=== PATIENT | male | born 1930 | race Caucasian/White ===

== ENCOUNTER 2016-07-24 05:00 | Inpatient (IN) | payer MEDICARE, OTHER ==
[~2016-07-24] VITALS: Ht 177.8 cm; Wt 147.2 kg
[2016-07-24] VITALS (7 sets, daily range): BP systolic 130–198; BP diastolic 85–110
--- NOTE | ~2016-07-24 | PR ---
[place], [place] PROGRESS NOTE NAME: TYSHAWN JOSHI [facility] #: [id number] UNIT #: [id number] ROOM: 511 DOCTOR: MAX STALLINGS MD BIRTHDATE: [birth year] DOS: 07/25/2016 SUBJECTIVE: The patient was seen at his bedside today, 07/25/2016, for followup of his atrial fibrillation and heart failure with preserved ejection fraction. He presented yesterday with marked fluid overload and hypoxemia. He was found to be in atrial fibrillation, which probably is in the setting of a conduction system disorder since his heart rate was not fast in atrial fibrillation. He was diuresed, and he states that he is breathing better today. His echocardiogram was a very technically challenging study, but showed normal overall left ventricular systolic function. PHYSICAL EXAMINATION: VITAL SIGNS: Today, his pulse is 68 and irregularly irregular, blood pressure 122/68. He is afebrile. NECK: Supple. He has no jugular distention or obvious hepatojugular reflux. Carotids are full. LUNGS: Respirations are unlabored. He has decreased breath sounds at the bases. HEART: An irregularly irregular rhythm and apical pulse is about 90. He has no murmurs or gallops. ABDOMEN: Obese, but otherwise benign. EXTREMITIES: Show 3+ edema bilaterally. LABORATORY DATA: Hemoglobin is 14.2, white count 9600, platelet count 206,000. Sodium 133, potassium 4.3, BUN 9, creatinine 0.66. Troponin levels were normal. Total cholesterol 147 with LDL 75 and HDL 60. TSH is normal at 2.28. IMPRESSION: 1. Massive fluid overload due to heart failure with preserved ejection fraction and exacerbated by atrial fibrillation. 2. Newly documented atrial fibrillation. The patient most likely does have a conduction system disorder since his heart rate is controlled despite the fact that he is not on a very high dose of heart rate slowing medication. 3. Chronic obstructive pulmonary disease. PLAN: We will switch him from IV to p.o. loop diuretics and continue to monitor his rate. I will increase the dose of his carvedilol. Unfortunately, we cannot monitor his I's and O's because of incontinence, but clinically he is doing better. We will continue to remain conservative and his management with our goal being to improve his breathing and fluid status only, especially since he does have a DNR-CC code status. We thank the hospitalist group for asking our advice regarding his care. [place], [place] PROGRESS NOTE NAME: TYSHAWN JOSHI UNIT #: [id number] ROOM: 511 DOCTOR: MAX STALLINGS MD BIRTHDATE: [birth year] MAX STALLINGS MD CM:PNTRANS [id number] MAX STALLINGS MD 07/26/16 0601 interface
--- NOTE | ~2016-07-24 | CON ---
[place], [place] REPORT OF CONSULTATION NAME: [id number] UN[facility] #: [id number] ROOM: 511 DOCTOR: MAX STALLINGS MD BIRTHDATE: [birth year] DOS: 07/24/2016 CARDIOLOGY CONSULTATION CHIEF COMPLAINT: Dyspnea and swelling. HISTORY OF PRESENT ILLNESS: The patient is an 86-year-old man, who was previously unknown to [facility]. He states he has never had a heart problem before. He is a permanent resident of [facility] where he has been living for the last 4 or 5 years. He tells me he has been unable to walk in all of that time because of arthritic problems with his right knee. The patient is a poor historian, but states that in the last several weeks, he has become more and more swollen in his legs and more dyspneic. Early this morning, his pulse oximetry measured at 80%, and therefore, Emergency Medical Services were called. He was placed on oxygen and brought to the Emergency Room. Chest x-ray showed cardiomegaly and vascular congestion, and an electrocardiogram showed atrial fibrillation with a controlled rate. As best he knows, he has never had a diagnosis of atrial fibrillation or any heart problems in the past. He was admitted to the hospital for management of atrial fibrillation and heart failure. The patient denies any chest pain or palpitations. He denies lightheadedness or syncope. He does note increased peripheral edema. He states that he has been bedridden for at least 4 or 5 years. PAST MEDICAL HISTORY: Includes: 1. Chronic obstructive pulmonary disease. 2. Degenerative joint disease, especially involving his right knee. 3. Inability to ambulate. PAST SURGICAL HISTORY: The patient has no previous surgical history. MEDICATIONS: Prior to admission, [place] saline nasal spray q.3 hours p.r.n., Debrox to the ears b.i.d. as needed, acetaminophen p.r.n., ascorbic acid 500 mg daily, aspirin 81 mg daily, Celebrex 200 mg daily, loratadine 10 mg daily, Singulair 10 mg daily, multivitamin daily, and Calmoseptine ointment q.12 hours as needed. ALLERGIES: The patient lists no known drug allergies. FAMILY HISTORY: The patient's father at age 77 from a stroke. The patient's mother at age 77 from breast cancer. REVIEW OF SYSTEMS: The patient denies diplopia or loss of vision. He does have poor hearing. He denies focal weakness. He denies lightheadedness or syncope. He denies chest pain or palpitations. He has noted increased dyspnea. He denies nausea or vomiting. He denies hemoptysis or hematemesis. He has noticed [place], [place] REPORT OF CONSULTATION NAME: TYSHAWN JOSHI UNIT #: [id number] ROOM: 511 DOCTOR: MAX STALLINGS MD BIRTHDATE: [birth year] a marked swelling of his abdomen, which has been progressive over the last 4 or 5 years. He denies change in bowel or bladder habits. He denies bleeding from his urine or stools. He has noticed swelling in his legs. He denies heat or cold intolerance, and denies polyuria or polydipsia. The remainder of the review of systems is negative except as noted above. SOCIAL HISTORY: The patient is a former smoker, smoking 2 packs a day for 60 years. He quit around 2012. He does not consume alcohol. PHYSICAL EXAMINATION: GENERAL: Reveals a massively overweight white male, who is awake, alert, and oriented. He is obviously hard of hearing. VITAL SIGNS: Pulse is 70 and irregularly irregular. Blood pressure is 156/94. He is afebrile. He weighs 149.5 kg and has a body mass index of 47.3. HEENT: Normocephalic, atraumatic. Extraocular muscles are intact. Sclerae are clear. Pupils are equal, round, and reactive to light. The oral mucosa is moist. Tongue is midline. NECK: Supple. I could not tell if he had jugular distention because of the girth of his neck. Carotids were full. I heard no bruits. He had no neck or supraclavicular masses. I could not feel his thyroid. LUNGS: His respirations were unlabored at rest, but did become short with minimal exertion. He has decreased breath sounds at the bases with a few rales at the bases. He does have expiratory prolongation over most of his lungs. I heard no wheezes. He had no presacral edema or chest wall tenderness. CARDIOVASCULAR: His heart had an irregularly irregular rhythm without murmurs or gallops. The PMI could not be felt. There was no precordial heave, lift, or thrill. ABDOMEN: Markedly distended. There was a slight fluid wave. There were no masses or organomegaly palpable. Bowel sounds were normal. There was no tenderness. EXTREMITIES: Showed 3+ edema to the knees. Pedal pulses could not be felt. He had no obvious skin rashes. LABORATORY DATA: I reviewed his electrocardiogram. It showed atrial fibrillation with a controlled ventricular response. There is poor precordial R-wave progression, but no acute ST or T-wave change. Chest x-ray does show cardiomegaly and pulmonary vascular congestion, but it is a poor inspiration. INR is 1.1. Hemoglobin 14.2 with hematocrit of 43.4. There are 8300 white cells and 225,000 platelets present. Sodium is 133, potassium 3.7, BUN 6, creatinine 0.47. Troponins have been negative x 2. TSH is slightly elevated at 6.14. ProBNP is elevated at 1232. IMPRESSION: 1. Massive fluid overload, probably due to diastolic dysfunction, exacerbated by atrial fibrillation. 2. Atrial fibrillation, newly documented. The patient probably does have a conduction system disorder since his heart rate is controlled despite the fact [place], [place] REPORT OF CONSULTATION NAME: TYSHAWN JOSHI UNIT #: [id number] ROOM: 511 DOCTOR: MAX STALLINGS MD BIRTHDATE: [birth year] that he is not on any significant dose of a heart rate slowing medication. 3. Chronic obstructive pulmonary disease. PLAN: The patient has been placed on loop diuretics. We will monitor his fluid output and weight along with his renal functions. I will increase his beta charu to better control his heart rate even though it is not particularly fast at this time. I did discuss with the patient the fact that he has a high risk of stroke. Part of this is because of his atrial fibrillation and part is because of his very sedentary lifestyle. He understands this and agrees to begin taking a direct oral anticoagulant. We will obtain an echocardiogram to quantify his left ventricular systolic function. I do note that his code status is comfort care. Because of this, we will remain very conservative in his management with our goal to be improve his breathing and fluid status only. We thank the hospitalist group for asking our advice regarding his care. MAX STALLINGS MD CM:CONSTR:REPORT OF CONSULTATION 1632 07/25/16 0236 interface
--- NOTE | ~2016-07-24 | EKG ---
[place], [place] ELECTROCARDIOGRAM REPORT NAME: TYSHAWN JOSHI UNIT #: [id number] ROOM: 511 DOCTOR: MAX STALLINGS MD BIRTHDATE: [birth year] DOS: 07/24/2016 TIME: 0520 hours. FINDINGS: 1. Atrial fibrillation with controlled ventricular response, rate 83. 2. Nonspecific T-wave abnormalities. 3. Abnormal electrocardiogram. MAX STALILNGS MD CM:EKGRPT:ELECTROCARDIOGRAM REPORT [id number] MAX STALLINGS MD
[~2016-07-24 05:00] MED LIST: DULCOLAX5 MG PO; DUONEB 3 MG/3 ML3 M1 NEB; MOM30 M1 PO; NICODERM14 MG/24 H T; NYSTATIN CREAM15 GM T; TYLENOL325 M1 PO
[2016-07-24] MEDS ORDERED: ASPIRIN81 M1 PO (05:08)
[2016-07-24] MEDS ORDERED: MULTI VITAMINS1 TAB PO (05:09)
[2016-07-24] MEDS ORDERED: CELECOXIB200 M1 PO (05:09)
[2016-07-24] MEDS ORDERED: CLARITIN10 MG PO (05:09)
[2016-07-24] MEDS ORDERED: SINGULAIR10 M1 PO (05:10)
[2016-07-24] MEDS ORDERED: OCEAN104 ML NAS (05:10)
[2016-07-24] MEDS ORDERED: DEBROX15 ML OT (05:11)
[2016-07-24] MEDS ORDERED: VITAMIN C500 M4 PO (05:11)
[2016-07-24 05:23] LABS: BASO # 0.1 10*3/uL (0.0-0.1); BASO % 0.7 % (0.0-1.0); EOS # 0.1 10*3/uL (0.0-0.4); HEMATOCRIT 43.4 % (42.0-52.0); HEMOGLOBIN 14.2 g/dl (14.0-18.0); LYMPH # 1.1 10*3/uL (1.3-4.4); LYMPH % 12.9 % (27.0-41.0); MEAN CELL VOLUME 98.6 fl (80.0-94.0); MEAN CORPUSCULAR HGB 32.3 pg (27.0-31.0); MEAN CORPUSCULAR HGB CONC 32.7 g/dl (33.0-37.0); MEAN PLATELET VOLUME 10.3 fl (9.6-12.3); MONO # 0.7 10*3/uL (0.1-1.0); MONO % 8.7 % (3.0-9.0); NEUT # 6.3 10*3/uL (2.3-7.9); NEUT % 76.3 % (47.0-73.0); PLATELET COUNT AUTOMATED 225 10*3/uL (130-400); WHITE BLOOD COUNT 8.3 10*3/uL (4.8-10.8)
[2016-07-24 05:35] LABS: INTERNATIONAL NORM RATIO 1.1 (2.0-3.5); PROTHROMBIN TIME 11.7 SECONDS (9.0-12.4)
[2016-07-24 05:41] LABS: ALBUMIN 3.4 gm/dl (3.1-4.5); ALKALINE PHOSPHATASE 91 U/L (45-117); BILIRUBIN, TOTAL 0.7 mg/dl (0.2-1.0); BUN 6 mg/dl (7-24); CARBON DIOXIDE 34 mmol/L (21-32); CHLORIDE 91 mmol/L (98-107); EST GLOM FILT AFRICAN AMERICAN > 60 ml/min; GLUCOSE 140 mg/dL (65-99); MAGNESIUM 2.2 mg/dL (1.5-2.1); POTASSIUM 3.7 mmol/L (3.5-5.1); SGOT/AST 14 IU/L (3-35); SGPT/ALT 27 U/L (12-78); SODIUM 133 mmol/L (136-145); TOTAL PROTEIN 7.4 gm/dL (6.4-8.2)
[2016-07-24 05:43] LABS: TROPONIN I < 0.015 ng/ml (<0.045)
[2016-07-24] MEDS ORDERED: CALMOSEPTINE1 OIN TP (08:02)
[2016-07-24 08:50] LABS: BILIRUBIN NEGATIVE (NEGATIVE); BLOOD NEGATIVE (NEGATIVE); CLARITY SL CLOUDY (CLEAR); COLOR YELLOW (YELLOW); GLUCOSE NEGATIVE (NEGATIVE); KETONE TRACE (NEGATIVE); LEUKO ESTERASE NEGATIVE (NEGATIVE); NITRITE NEGATIVE (NEGATIVE); PROTEIN 1+ (NEGATIVE)
[2016-07-24 09:00] LABS: BACTERIA TRACE; EPITHELIAL CELLS 0-2; RBC 0-2 rbc/hpf (0-2); URINE REFLEX COMMENT NO (NO)
[2016-07-24 12:19] LABS: CKMB 2.6 ng/ml (0.5-3.6); CPK 54 U/L (39-308)
[2016-07-24 12:26] LABS: TROPONIN I < 0.015 ng/ml (<0.045)
[2016-07-24 18:40] LABS: CKMB 2.3 ng/ml (0.5-3.6); CPK 54 U/L (39-308)
[2016-07-24 18:42] LABS: TROPONIN I < 0.015 ng/ml (<0.045)
[2016-07-25] VITALS (8 sets, daily range): BP systolic 100–150; BP diastolic 54–80
[2016-07-25 00:39] LABS: CKMB 1.6 ng/ml (0.5-3.6); CPK 42 U/L (39-308)
[2016-07-25 00:40] LABS: TROPONIN I < 0.015 ng/ml (<0.045)
[2016-07-25 06:16] LABS: HEMATOCRIT 44.4 % (42.0-52.0); HEMOGLOBIN 14.2 g/dl (14.0-18.0); MEAN CELL VOLUME 100.9 fl (80.0-94.0); MEAN CORPUSCULAR HGB 32.3 pg (27.0-31.0); MEAN PLATELET VOLUME 10.4 fl (9.6-12.3); PLATELET COUNT AUTOMATED 206 10*3/uL (130-400); RED CELL DISTRI WIDTH 13.9 % (0-14.5); WHITE BLOOD COUNT 9.6 10*3/uL (4.8-10.8)
[2016-07-25 06:46] LABS: BUN 9 mg/dl (7-24); CARBON DIOXIDE 39 mmol/L (21-32); CHLORIDE 88 mmol/L (98-107); CHOLESTEROL 147 mg/dL (<200); EST GLOM FILT AFRICAN AMERICAN > 60 ml/min; GLUCOSE 143 mg/dL (65-99); MAGNESIUM 2.3 mg/dL (1.5-2.1); PHOSPHOROUS 3.9 mg/dL (2.5-4.9); POTASSIUM 4.3 mmol/L (3.5-5.1); SODIUM 133 mmol/L (136-145); TRIGLYCERIDES 58 mg/dl (<150); VLDL CHOLESTEROL 12 mg/dL (6-40)
[2016-07-25 06:55] LABS: HDL CHOLESTEROL 60 mg/dl (40-60); LDL CHOLESTEROL 75 mg/dL (9-159)
[2016-07-25 07:12] LABS: ATYPICAL LYMPHS 1 % (0-0); LYMPHOCYTE # 0.6 10*3/uL (1.3-4.4); MONOCYTE # 0.2 10*3/uL (0.1-1.0); NEUTROPHIL # 8.8 10*3/uL (2.3-7.9); NEUTROPHILS 92 % (47-73); PLATELET SUFFICIENCY NORMAL (NORMAL); TOTAL CELLS COUNTED 100 #CELLS
[2016-07-25 07:35] LABS: HEMOGLOBIN A1c 6.2 % (4.8-5.6)
[2016-07-26] VITALS: BP 122/65
[2016-07-26 08:00] VITALS: BP 120/68
[2016-07-26 12:00] VITALS: BP 103/64
[2016-07-26 16:00] VITALS: BP 118/52
[2016-07-26 20:00] VITALS: BP 117/82
[2016-07-27] VITALS: BP 108/72
[2016-07-27 08:00] VITALS: BP 103/65
[2016-07-27] MEDS ORDERED: FUROSEMIDE40 MG PO (10:58)
[2016-07-27] MEDS ORDERED: PREDNISONE10 MG PO (10:58)
[2016-07-27] MEDS ORDERED: XARE20MG PO (10:58)
[2016-07-27] MEDS ORDERED: MUCINEX ER600 MG PO (10:58)
[2016-07-27] MEDS ORDERED: CARVEDILOL25 MG PO (10:58)
[2016-07-27] MEDS ORDERED: DOXYCYCLINE HY100 M3 PO (10:58)
[2016-07-27 12:00] VITALS: BP 100/61
[2016-07-27] MEDS ORDERED: OXYGEN NAS (13:13)
== END 2016-07-27 15:51 | disposition other institution (70) | DRG 871 ==
LOC: ED 05:00 → 5E 05:59 → EDHOLD 05:59 → 5E 06:05
PROVIDERS: Emergency Medicine Emergency Medical Services; Student in an Organized Health Care Education/Training Program
DX: A41.9 Sepsis, unspecified organism (principal); J18.9 Pneumonia, unspecified organism; J96.01 Acute respiratory failure with hypoxia; I50.30 Unspecified diastolic (congestive) heart failure; I48.91 Unspecified atrial fibrillation; J44.0 Chronic obstructive pulmonary disease with (acute) lower respiratory infection; E87.1 Hypo-osmolality and hyponatremia; E44.1 Mild protein-calorie malnutrition; J44.1 Chronic obstructive pulmonary disease with (acute) exacerbation; Z68.42 Body mass index [BMI] 45.0-49.9, adult; Z66 Do not resuscitate; M17.11 Unilateral primary osteoarthritis, right knee; E83.41 Hypermagnesemia; E83.51 Hypocalcemia; Z79.01 Long term (current) use of anticoagulants; Z79.899 Other long term (current) drug therapy; Z79.82 Long term (current) use of aspirin; Z82.49 Family history of ischemic heart disease and other diseases of the circulatory system; Z82.3 Family history of stroke; Z80.3 Family history of malignant neoplasm of breast

== ENCOUNTER 2017-01-10 06:02 | Inpatient (IN) | payer MEDICARE, OTHER ==
[~2017-01-10] VITALS: Ht 179 cm; Wt 125.2 kg
[~2017-01-10 06:02] MED LIST changes: +ASPIRIN81 M1 PO; +CALMOSEPTINE1 OIN TP; +CARVEDILOL25 MG PO; +CELECOXIB200 M1 PO; +CLARITIN10 MG PO; +DEBROX15 ML OT; +DOXYCYCLINE HY100 M3 PO; +FUROSEMIDE40 MG PO; +MUCINEX ER600 MG PO; +MULTI VITAMINS1 TAB PO; +OCEAN104 ML NAS; +OXYGEN NAS; +PREDNISONE10 MG PO; +SINGULAIR10 M1 PO; +VITAMIN C500 M4 PO; +XARE20MG PO
[2017-01-10 06:04] VITALS: BP 112/65
[2017-01-10 06:26] LABS: BASO % 0.2 % (0.0-1.0); EOS % 0.1 % (1.0-4.0); HEMATOCRIT 38.6 % (42.0-52.0); LYMPH # 1.1 10*3/uL (1.3-4.4); LYMPH % 5.7 % (27.0-41.0); MEAN CORPUSCULAR HGB CONC 33.7 g/dl (33.0-37.0); MEAN PLATELET VOLUME 10.6 fl (9.6-12.3); MONO # 1.1 10*3/uL (0.1-1.0); MONO % 5.6 % (3.0-9.0); NEUT # 16.5 10*3/uL (2.3-7.9); NEUT % 87.3 % (47.0-73.0); PLATELET COUNT AUTOMATED 187 10*3/uL (130-400); RED BLOOD COUNT 3.94 10*6/uL (4.50-5.90); RED CELL DISTRI WIDTH 13.5 % (0-14.5); WHITE BLOOD COUNT 18.9 10*3/uL (4.8-10.8)
[2017-01-10 06:43] LABS: ALBUMIN 2.7 gm/dl (3.1-4.5); ALKALINE PHOSPHATASE 72 U/L (45-117); BUN 14 mg/dl (7-24); CHLORIDE 98 mmol/L (98-107); POTASSIUM 3.5 mmol/L (3.5-5.1); SGOT/AST 10 IU/L (3-35); SGPT/ALT 12 U/L (12-78); SODIUM 139 mmol/L (136-145); TOTAL PROTEIN 6.7 gm/dL (6.4-8.2)
[2017-01-10 06:50] LABS: TROPONIN I < 0.015 ng/ml (<0.045)
[2017-01-10 07:00] VITALS: BP 132/76
--- NOTE | 2017-01-10 07:00 | NUR ---
PT CURRENTLY STATED HE DOES NOT WANT PICTURES TAKEN OF WOUNDS.
[2017-01-10 08:00] VITALS: BP 142/73
--- NOTE | 2017-01-10 08:15 | NUR ---
BOTH BAGS OF VANCOMYCIN WAS TAKEN TO 5E AND GIVEN TO KRYSTAL GARIBAY.
[2017-01-10 08:42] VITALS: BP 132/76
[2017-01-10] MEDS ORDERED: CLARITIN10 MG PO (10:24)
[2017-01-10] MEDS ORDERED: MEDROL4 M1 PO (10:25)
[2017-01-10] MEDS ORDERED: TRAMADOL HCL50 MG PO (10:28)
[2017-01-10] MEDS ORDERED: TYLENOL325 M2 PO (10:29)
[2017-01-10] MEDS ORDERED: KLOR-CON M2020 ME1 PO (10:31)
--- NOTE | 2017-01-10 10:31 | NUR ---
Time: 841 A 86 year old MALE admitted to 5E under services of DANNY RUSSELL DO. Pt. arrived via stretcher from ER. Chief complaint: CELLULITIS. NIDA GUERRA
--- NOTE | 2017-01-10 10:34 | NUR ---
MEDICATION RECONCILIATION CONDUCTED USING LIST RECIEVED FROM [facility]E [facility]
--- NOTE | 2017-01-10 11:43 | NUR ---
This nurse was asked to evaluate patient's buttocks and jena area. Foul smelling red rash noted to periarea and buttocks. No drainage at this time. Bilateral heels are red and blanchable. Wound recommend nystatin cream to periarea and buttocks area. Wheelchair cushion when OOB. Heel raiser pro boots while in bed. This nurse notified Dr. Marlow of wound care recommendations.
[2017-01-10 13:56] LABS: BILIRUBIN NEGATIVE (NEGATIVE); BLOOD TRACE-INTACT (NEGATIVE); CLARITY SL CLOUDY (CLEAR); COLOR YELLOW (YELLOW); GLUCOSE NEGATIVE (NEGATIVE); KETONE NEGATIVE (NEGATIVE); LEUKO ESTERASE 1+ (NEGATIVE); NITRITE POSITIVE (NEGATIVE); SPECIFIC GRAVITY 1.015 (1.005-1.030)
[2017-01-10 14:26] LABS: BACTERIA 1+; WBC 21-30 wbc/hpf (0-5)
[2017-01-10 16:00] VITALS: BP 122/75
[2017-01-10 20:00] VITALS: BP 120/61
[2017-01-11] VITALS: BP 113/71
[2017-01-11 07:35] LABS: BASO % 0.4 % (0.0-1.0); EOS # 0.2 10*3/uL (0.0-0.4); EOS % 1.5 % (1.0-4.0); HEMATOCRIT 38.8 % (42.0-52.0); HEMOGLOBIN 12.7 g/dl (14.0-18.0); LYMPH # 1.4 10*3/uL (1.3-4.4); LYMPH % 13.1 % (27.0-41.0); MEAN CELL VOLUME 99.2 fl (80.0-94.0); MEAN CORPUSCULAR HGB 32.5 pg (27.0-31.0); MEAN CORPUSCULAR HGB CONC 32.7 g/dl (33.0-37.0); MEAN PLATELET VOLUME 10.4 fl (9.6-12.3); MONO # 0.9 10*3/uL (0.1-1.0); MONO % 8.3 % (3.0-9.0); NEUT # 7.9 10*3/uL (2.3-7.9); NEUT % 76.1 % (47.0-73.0); PLATELET COUNT AUTOMATED 186 10*3/uL (130-400); RED BLOOD COUNT 3.91 10*6/uL (4.50-5.90); RED CELL DISTRI WIDTH 13.7 % (0-14.5); WHITE BLOOD COUNT 10.3 10*3/uL (4.8-10.8)
[2017-01-11 08:00] VITALS: BP 120/65
[2017-01-11 08:03] LABS: ACT PARTIAL THROMBO TIME 36.6 SECONDS (20.8-31.5); INTERNATIONAL NORM RATIO 1.4 (2.0-3.5)
[2017-01-11 08:04] LABS: BUN 11 mg/dl (7-24); CHLORIDE 99 mmol/L (98-107); CHOLESTEROL 109 mg/dL (<200); CREATININE 0.52 mg/dL (0.70-1.30); HDL CHOLESTEROL 43 mg/dl (40-60); LDL CHOLESTEROL 55 mg/dL (9-159); MAGNESIUM 2.2 mg/dL (1.5-2.1); PHOSPHOROUS 3.1 mg/dL (2.5-4.9); POTASSIUM 2.8 mmol/L (3.5-5.1); SODIUM 140 mmol/L (136-145); TRIGLYCERIDES 55 mg/dl (<150); VLDL CHOLESTEROL 11 mg/dL (6-40)
--- NOTE | 2017-01-11 08:08 | NUR ---
Patient is LTC resident of [facility] [place], can return with updates when stable for discharge.
--- NOTE | 2017-01-11 08:49 | NUR ---
SPEECH PATHOLOGY Screening completed. Patient admitted with cellulitis. There are no reports of acute receptive/expressive difficulty or dysphagia. Speech pathology services are not warranted at this time however this dept. will remain available should future needs arise. MARCO ANTONIO LOPES MSCCC-VICE PRESIDENT PAYER
[2017-01-11 12:00] VITALS: BP 111/66
--- NOTE | 2017-01-11 14:45 | NUR ---
DAPHNE HANEY CALLED TO NOTIFY OF PATIENT NEW COMPLAINTS OF SOB, IRREGULAR HEAR RATE AND ANXIOUSNESS. PT DENIES CHEST PAIN, VITALS ARE WNL.
[2017-01-11 16:00] VITALS: BP 129/79
[2017-01-11 20:00] VITALS: BP 125/73
[2017-01-12] VITALS: BP 127/75
--- NOTE | 2017-01-12 06:53 | NUR ---
PATIENT MEDICATED WITH TYLENOL PER PRN ORDER FOR C/O LEG PAIN. RATED PAIN A 4/10 WITH 10 BEING THE WORST. SEE EMAR. REINFORCED USE OF CALL LIGHT.
[2017-01-12 07:29] LABS: BASO # 0.1 10*3/uL (0.0-0.1); BASO % 0.8 % (0.0-1.0); EOS # 0.2 10*3/uL (0.0-0.4); EOS % 1.8 % (1.0-4.0); HEMATOCRIT 42.8 % (42.0-52.0); HEMOGLOBIN 13.2 g/dl (14.0-18.0); LYMPH # 1.6 10*3/uL (1.3-4.4); LYMPH % 18.7 % (27.0-41.0); MEAN CORPUSCULAR HGB 31.8 pg (27.0-31.0); MEAN CORPUSCULAR HGB CONC 30.8 g/dl (33.0-37.0); MEAN PLATELET VOLUME 11.3 fl (9.6-12.3); MONO # 0.8 10*3/uL (0.1-1.0); MONO % 8.9 % (3.0-9.0); NEUT % 69.3 % (47.0-73.0); PLATELET COUNT AUTOMATED 222 10*3/uL (130-400); RED BLOOD COUNT 4.15 10*6/uL (4.50-5.90); RED CELL DISTRI WIDTH 13.7 % (0-14.5); WHITE BLOOD COUNT 8.7 10*3/uL (4.8-10.8)
[2017-01-12 07:33] LABS: MEAN CELL VOLUME 103.1 fl (80.0-94.0)
[2017-01-12 07:48] LABS: ALBUMIN 2.7 gm/dl (3.1-4.5); ALKALINE PHOSPHATASE 81 U/L (45-117); BUN 11 mg/dl (7-24); CHLORIDE 101 mmol/L (98-107); CREATININE 0.61 mg/dL (0.70-1.30); SGOT/AST 12 IU/L (3-35); SGPT/ALT 17 U/L (12-78); TOTAL PROTEIN 7.2 gm/dL (6.4-8.2)
[2017-01-12 07:51] LABS: SODIUM 144 mmol/L (136-145)
[2017-01-12 08:00] VITALS: BP 118/79
[2017-01-12 12:00] VITALS: BP 113/80
--- NOTE | 2017-01-12 12:01 | NUR ---
[facility]
--- NOTE | 2017-01-12 13:58 | NUR ---
[facility] [place]. patient can return when medically stable for discharge.
[2017-01-12 16:00] VITALS: BP 122/60
[2017-01-12 20:00] VITALS: BP 99/85
[2017-01-13] VITALS: BP 124/79
[2017-01-13 08:00] VITALS: BP 150/94
--- NOTE | 2017-01-13 08:30 | NUR ---
PT RESTING IN BED, NO DISTRESS NOTED. NO VOICED C/O, WILL MONITOR
--- NOTE | 2017-01-13 11:30 | NUR ---
PT NOTED TO HAVE LARGE WHITE/CLEAR DIARRHEA. DR TANIA FLOOD NOTIFIED
[2017-01-13 12:00] VITALS: BP 106/64
[2017-01-13] MEDS ORDERED: FLUCONAZOLE100 MG PO (12:38)
[2017-01-13] MEDS ORDERED: CEPHALEXIN500 M1 PO (12:38)
[2017-01-13] MEDS ORDERED: Nystatin Cream15 GM T (12:38)
--- NOTE | 2017-01-13 14:22 | NUR ---
PT REFUSED TO HAVE DC PHOTOS TAKEN. PT'S SON SHAKILA NOTIFIED OF PT RETURNING TO [facility] TODAY
--- NOTE | 2017-01-13 14:29 | NUR ---
REPORT CALLED TO TETE GIFFORD
[2017-01-13 16:00] VITALS: BP 107/66
--- NOTE | 2017-01-13 16:50 | NUR ---
Discharge instructions reviewed with patient/family. Patient receptive and verbalizes understanding. Follow-up care arranged. Written instructions given to patient/family. HEPLOCK REMOVED INTACT. MONITOR REMOVED. PATIENT DISCHARGED BY AMBULANCE. KIERA SIMMONS
== END 2017-01-13 16:50 | disposition other institution (70) | DRG 871 ==
LOC: ED 06:02 → 5E 07:27 → EDHOLD 07:27 → 5E 07:52
PROVIDERS: Internal Medicine Nephrology; Registered Nurse; Student in an Organized Health Care Education/Training Program; ADMIT Internal Medicine
DX: A41.9 Sepsis, unspecified organism (principal); E43 Unspecified severe protein-calorie malnutrition; I50.30 Unspecified diastolic (congestive) heart failure; D53.9 Nutritional anemia, unspecified; L03.116 Cellulitis of left lower limb; I48.91 Unspecified atrial fibrillation; B37.2 Candidiasis of skin and nail; N30.01 Acute cystitis with hematuria; E87.6 Hypokalemia; E55.9 Vitamin D deficiency, unspecified; J41.0 Simple chronic bronchitis; J30.2 Other seasonal allergic rhinitis; E66.01 Morbid (severe) obesity due to excess calories; R73.9 Hyperglycemia, unspecified; M19.90 Unspecified osteoarthritis, unspecified site; Z87.01 Personal history of pneumonia (recurrent); Z79.01 Long term (current) use of anticoagulants; Z87.891 Personal history of nicotine dependence; Z98.52 Vasectomy status; Z82.49 Family history of ischemic heart disease and other diseases of the circulatory system; Z82.3 Family history of stroke; Z80.3 Family history of malignant neoplasm of breast; Z79.82 Long term (current) use of aspirin; Z79.899 Other long term (current) drug therapy; Z68.39 Body mass index [BMI] 39.0-39.9, adult; W01.0XXA Fall on same level from slipping, tripping and stumbling without subsequent striking against object, initial encounter; Y93.01 Activity, walking, marching and hiking; Y92.128 Other place in nursing home as the place of occurrence of the external cause; Y99.8 Other external cause status

== ENCOUNTER 2017-08-28 22:44 | Inpatient (IN) | payer MEDICARE, OTHER, MEDICAID ==
[~2017-08-28] VITALS: Ht 180.3 cm; Wt 112.5 kg
--- NOTE | ~2017-08-28 | O ---
[place], [place] OPERATIVE NOTE NAME: [facility] JOSHI [facility] [id number] UNIT #: [id number] ROOM: [facility] DOCTOR: DENILSON RIVERA MD BIRTHDATE: [birth year] DOS: 08/29/2017 PREOPERATIVE DIAGNOSIS: Sigmoid volvulus. POSTOPERATIVE DIAGNOSIS: Sigmoid volvulus. PROCEDURE: Colonoscopy, exploratory laparotomy, sigmoid resection, end-colostomy. SURGEON: Denilson Rivera MD ELECTRONIC TRANSACTION IMPLEMENTER: JARETT. ANESTHESIA: General with endotracheal intubation. INDICATIONS: This is an 87-year-old gentleman who presented to the Emergency Room from skilled nursing with complaints of abdominal pain and distention and on a CAT scan that was found to have a sigmoid volvulus. It was decided to take the patient to the operating room today for the above-mentioned procedure. The procedure and its complications were explained to him and his son telephonically preoperatively. Complications that were discussed included but were not limited to bleeding, infection, hematoma/seroma/abscess formation, prolonged postoperative pain, damage to underlying vital structures, complications related to the colostomy and incisional hernia formation. He agreed to proceed. DESCRIPTION OF PROCEDURE: After identifying the patient, the patient was brought to the operating suite and laid in the supine position. After IV sedation was administered, he was placed in the left lateral position and a digital rectal exam was performed. An adult colonoscope was now introduced into the anal canal and advanced sequentially into the rectum and the sigmoid colon. Because of poor prep, the area was irrigated frequently in order to visualize the mucosa of the sigmoid colon. This was found to be ischemic and possibly gangrenous. The scope was withdrawn and the patient was then prepared for an exploratory laparotomy and sigmoid resection. The patient was placed back in a supine position and general anesthesia was administered. Parts were then painted and draped in the usual sterile fashion. Prior to that an NG tube was placed by the anesthesia team and a [place] catheter was placed into the urinary bladder. An incision was made in the midline. This was done after timeout procedure was confirmed. The skin and the subcutaneous tissue were incised and the fascia was incised and the peritoneum was opened. The entire sigmoid colon which was found to be edematous and in certain areas found to have areas of ischemia/gangrene was delivered out through the wound. A spot was chosen proximally where the of a LYUBOV stapler the colon was stapled across. The rest of the sigmoid colon was able to be removed after serial ligations were performed with the help of LigaSure device until the distal part of the solid sigmoid colon was reached where a TA stapler was applied and the specimen was removed and sent for histopathological diagnosis. Thereafter, the staple margin of the TA stapler was overrun with the help of 0 Prolene in a running fashion to reinforce the staple line. Copious amount of saline was used for irrigation. [place], [place] OPERATIVE NOTE NAME: TYSHAWN JOSHI UNIT #: [id number] ROOM: [facility] DOCTOR: DENILSON RIVERA MD BIRTHDATE: [birth year] Thereafter, the proximal bowel was inspected and was found to have adequate vascularity. It was mobilized in order to create an end colostomy. At this point, an incision was made in the left lower quadrant and deepened in layers. The skin and the underlying subcutaneous tissue and fat were excised and the fascia was then reached. It was then incised in a cruciate fashion with the help of electrocautery and through the rectus muscle the incision was made in the peritoneum and hence a colostomy site was created. With the help of a Amberson forceps, the distal part of the descending colon was brought out where the colostomy was to be matured. Thereafter, the fascia of the midline incision was approximated with the help of looped PDS in a running fashion. The subcutaneous tissue was irrigated copiously with saline and the incision on the skin was approximated with the help of michelle. The colostomy was matured with the help of 0 and 3-0 Vicryl in an interrupted fashion. A colostomy bag was placed. The patient was extubated uneventfully and brought back to the recovery room in stable fashion. There were no complications. Dr. Denilson Rivera, the attending surgeon, was present throughout the operating case. Denilson Rivera MD CM:OPRECORD:OPERATIVE NOTE [id number] DENILSON RIVERA MD 08/29/17 1327 interface
[2017-08-28 22:44] VITALS: BP 109/74
[~2017-08-28 22:44] MED LIST changes: +CEPHALEXIN500 M1 PO; +FLUCONAZOLE100 MG PO; +KLOR-CON M2020 ME1 PO; +MEDROL4 M1 PO; +Nystatin Cream15 GM T; +TRAMADOL HCL50 MG PO; +TYLENOL325 M2 PO
[2017-08-28 23:40] LABS: HEMATOCRIT 39.6 % (42.0-52.0); HEMOGLOBIN 12.8 g/dl (14.0-18.0); MEAN CELL VOLUME 97.8 fl (80.0-94.0); MEAN CORPUSCULAR HGB 31.6 pg (27.0-31.0); MEAN CORPUSCULAR HGB CONC 32.3 g/dl (33.0-37.0); MEAN PLATELET VOLUME 11.6 fl (9.6-12.3); PLATELET COUNT AUTOMATED 188 10*3/uL (130-400); RED BLOOD COUNT 4.05 10*6/uL (4.50-5.90); RED CELL DISTRI WIDTH 15.6 % (0-14.5); WHITE BLOOD COUNT 20.5 10*3/uL (4.8-10.8)
[2017-08-28 23:54] LABS: ALBUMIN 3.1 gm/dl (3.1-4.5); ALKALINE PHOSPHATASE 95 U/L (45-117); BUN 10 mg/dl (7-24); CHLORIDE 100 mmol/L (98-107); CREATININE 0.67 mg/dL (0.70-1.30); LIPASE 140 U/L (73-393); SGOT/AST 25 IU/L (3-35); SGPT/ALT 16 U/L (12-78); SODIUM 137 mmol/L (136-145); TOTAL PROTEIN 7.8 gm/dL (6.4-8.2)
[2017-08-28 23:59] LABS: PLATELET SUFFICIENCY NORMAL (NORMAL); TOTAL CELLS COUNTED 100 #CELLS
[2017-08-29] VITALS (14 sets, daily range): BP systolic 92–122; BP diastolic 44–79
[2017-08-29 01:52] LABS: BILIRUBIN 2+ (NEGATIVE); BLOOD 3+ (NEGATIVE); CLARITY CLOUDY (CLEAR); COLOR YELLOW (YELLOW); GLUCOSE NEGATIVE (NEGATIVE); KETONE 1+ (NEGATIVE); LEUKO ESTERASE 3+ (NEGATIVE); NITRITE POSITIVE (NEGATIVE); PH 5.5 (5.0-9.0)
[2017-08-29 02:04] LABS: WBC TNTC wbc/hpf (0-5)
[2017-08-29] MEDS ORDERED: ZOLOFT50 MG PO (03:15)
[2017-08-29] MEDS ORDERED: PRESERVISION A1 EAC1 PO (03:16)
[2017-08-29] MEDS ORDERED: COLACE100 MG PO (04:17)
[2017-08-29] MEDS ORDERED: BIOFREEZE118 ML T (04:18)
[2017-08-29] MEDS ORDERED: DULCOLAX10 M1 R (04:19)
[2017-08-29] MEDS ORDERED: MILK OF MA400 MG/51 PO (04:20)
[2017-08-29] MEDS ORDERED: READY TO USE E133 ML R (04:21)
[2017-08-29] MEDS ORDERED: MIRALAX17 GM PO (04:22)
[2017-08-29] MEDS ORDERED: VITAMIN C500 M8 PO (04:23)
[2017-08-29 05:40] LABS: ALBUMIN 3.2 gm/dl (3.1-4.5); ALKALINE PHOSPHATASE 92 U/L (45-117); BUN 16 mg/dl (7-24); CHLORIDE 98 mmol/L (98-107); CHOLESTEROL 101 mg/dL (<200); CREATININE 0.93 mg/dL (0.70-1.30); HDL CHOLESTEROL 49 mg/dl (40-60); LDL CHOLESTEROL 44 mg/dL (9-159); POTASSIUM 4.1 mmol/L (3.5-5.1); SGOT/AST 21 IU/L (3-35); SGPT/ALT 15 U/L (12-78); SODIUM 137 mmol/L (136-145); TOTAL PROTEIN 7.7 gm/dL (6.4-8.2); TRIGLYCERIDES 42 mg/dl (<150); VLDL CHOLESTEROL 8 mg/dL (6-40)
[2017-08-29 05:41] LABS: FREE T4 1.26 ng/dl (0.76-1.46)
[2017-08-29 06:13] LABS: HEMATOCRIT 38.8 % (42.0-52.0); HEMOGLOBIN 12.5 g/dl (14.0-18.0); MEAN CELL VOLUME 97.5 fl (80.0-94.0); MEAN CORPUSCULAR HGB 31.4 pg (27.0-31.0); MEAN CORPUSCULAR HGB CONC 32.2 g/dl (33.0-37.0); MEAN PLATELET VOLUME 12.5 fl (9.6-12.3); PLATELET COUNT AUTOMATED 178 10*3/uL (130-400); RED BLOOD COUNT 3.98 10*6/uL (4.50-5.90); RED CELL DISTRI WIDTH 15.6 % (0-14.5)
[2017-08-29 06:21] LABS: ACT PARTIAL THROMBO TIME 37.6 SECONDS (20.8-31.5); INTERNATIONAL NORM RATIO 1.9 (2.0-3.5)
[2017-08-29 07:02] LABS: TOTAL CELLS COUNTED 100 #CELLS
[2017-08-29 07:04] LABS: PLATELET SUFFICIENCY NORMAL (NORMAL)
[2017-08-29 07:13] LABS: VITAMIN D, 25-HYDROXY 20.2 ng/mL (30-100)
[2017-08-30] VITALS: BP 110/50
[2017-08-30 04:00] VITALS: BP 124/70
[2017-08-30 05:03] LABS: HEMATOCRIT 32.9 % (42.0-52.0); HEMOGLOBIN 10.6 g/dl (14.0-18.0); MEAN CELL VOLUME 99.7 fl (80.0-94.0); MEAN CORPUSCULAR HGB 32.1 pg (27.0-31.0); MEAN CORPUSCULAR HGB CONC 32.2 g/dl (33.0-37.0); MEAN PLATELET VOLUME 11.7 fl (9.6-12.3); PLATELET COUNT AUTOMATED 151 10*3/uL (130-400); RED CELL DISTRI WIDTH 15.8 % (0-14.5); WHITE BLOOD COUNT 12.5 10*3/uL (4.8-10.8)
[2017-08-30 05:11] LABS: INTERNATIONAL NORM RATIO 1.8 (2.0-3.5)
[2017-08-30 05:24] LABS: ALBUMIN 2.2 gm/dl (3.1-4.5); ALKALINE PHOSPHATASE 66 U/L (45-117); BUN 21 mg/dl (7-24); CHLORIDE 104 mmol/L (98-107); CREATININE 0.84 mg/dL (0.70-1.30); POTASSIUM 4.3 mmol/L (3.5-5.1); SGOT/AST 21 IU/L (3-35); SGPT/ALT 11 U/L (12-78); SODIUM 141 mmol/L (136-145); TOTAL PROTEIN 5.8 gm/dL (6.4-8.2)
[2017-08-30 05:30] LABS: PLATELET SUFFICIENCY NORMAL (NORMAL); POLYCHROMASIA SLIGHT; TOTAL CELLS COUNTED 100 #CELLS
[2017-08-30 08:00] VITALS: BP 91/52
[2017-08-30 12:00] VITALS: BP 100/60
[2017-08-30 16:00] VITALS: BP 105/58
[2017-08-30 20:00] VITALS: BP 94/54
[2017-08-31 00:34] VITALS: BP 110/65
[2017-08-31 06:34] LABS: BASO % 0.3 % (0.0-1.0); EOS # 0.1 10*3/uL (0.0-0.4); EOS % 0.6 % (1.0-4.0); HEMATOCRIT 32.7 % (42.0-52.0); LYMPH # 1.2 10*3/uL (1.3-4.4); MEAN CELL VOLUME 102.2 fl (80.0-94.0); MEAN CORPUSCULAR HGB 31.3 pg (27.0-31.0); MEAN CORPUSCULAR HGB CONC 30.6 g/dl (33.0-37.0); MEAN PLATELET VOLUME 12.3 fl (9.6-12.3); MONO # 0.6 10*3/uL (0.1-1.0); MONO % 5.3 % (3.0-9.0); NEUT # 9.5 10*3/uL (2.3-7.9); NEUT % 82.6 % (47.0-73.0); PLATELET COUNT AUTOMATED 178 10*3/uL (130-400); RED CELL DISTRI WIDTH 15.7 % (0-14.5); WHITE BLOOD COUNT 11.6 10*3/uL (4.8-10.8)
[2017-08-31 06:55] LABS: ALBUMIN 2.1 gm/dl (3.1-4.5); ALKALINE PHOSPHATASE 70 U/L (45-117); BUN 18 mg/dl (7-24); CHLORIDE 107 mmol/L (98-107); POTASSIUM 3.8 mmol/L (3.5-5.1); SGOT/AST 19 IU/L (3-35); SGPT/ALT 12 U/L (12-78); SODIUM 145 mmol/L (136-145); TOTAL PROTEIN 5.8 gm/dL (6.4-8.2)
[2017-08-31 08:00] VITALS: BP 124/66
[2017-08-31 12:00] VITALS: BP 136/58
[2017-08-31 16:00] VITALS: BP 125/64
[2017-08-31 20:00] VITALS: BP 127/78
[2017-09-01 00:22] VITALS: BP 114/74
[2017-09-01 07:12] LABS: BASO % 0.3 % (0.0-1.0); EOS # 0.1 10*3/uL (0.0-0.4); EOS % 0.8 % (1.0-4.0); HEMATOCRIT 33.6 % (42.0-52.0); HEMOGLOBIN 10.4 g/dl (14.0-18.0); LYMPH # 1.1 10*3/uL (1.3-4.4); LYMPH % 10.8 % (27.0-41.0); MEAN CELL VOLUME 100.3 fl (80.0-94.0); MEAN PLATELET VOLUME 11.1 fl (9.6-12.3); MONO # 0.8 10*3/uL (0.1-1.0); MONO % 7.8 % (3.0-9.0); NEUT # 8.4 10*3/uL (2.3-7.9); NEUT % 79.8 % (47.0-73.0); PLATELET COUNT AUTOMATED 207 10*3/uL (130-400); RED BLOOD COUNT 3.35 10*6/uL (4.50-5.90); RED CELL DISTRI WIDTH 15.5 % (0-14.5); WHITE BLOOD COUNT 10.5 10*3/uL (4.8-10.8)
[2017-09-01 07:38] LABS: CHLORIDE 106 mmol/L (98-107); CREATININE 0.49 mg/dL (0.70-1.30); POTASSIUM 3.2 mmol/L (3.5-5.1); SODIUM 143 mmol/L (136-145)
[2017-09-01 07:40] LABS: BUN 8 mg/dl (7-24)
[2017-09-01 08:00] VITALS: BP 127/95
[2017-09-01 12:00] VITALS: BP 132/79
[2017-09-01 16:00] VITALS: BP 115/82
[2017-09-01 20:00] VITALS: BP 134/76
[2017-09-02] VITALS: BP 121/84
[2017-09-02 08:00] VITALS: BP 116/61
[2017-09-02 12:00] VITALS: BP 104/67
[2017-09-02 16:00] VITALS: BP 104/60
[2017-09-02 20:00] VITALS: BP 95/52
[2017-09-02 21:45] VITALS: BP 110/60
[2017-09-03 00:10] VITALS: BP 115/60
[2017-09-03 06:40] LABS: BASO % 0.3 % (0.0-1.0); EOS # 0.3 10*3/uL (0.0-0.4); EOS % 2.7 % (1.0-4.0); HEMATOCRIT 31.6 % (42.0-52.0); HEMOGLOBIN 9.9 g/dl (14.0-18.0); LYMPH # 1.2 10*3/uL (1.3-4.4); LYMPH % 13.2 % (27.0-41.0); MEAN CELL VOLUME 100.3 fl (80.0-94.0); MEAN CORPUSCULAR HGB 31.4 pg (27.0-31.0); MEAN CORPUSCULAR HGB CONC 31.3 g/dl (33.0-37.0); MONO # 1.2 10*3/uL (0.1-1.0); MONO % 13.1 % (3.0-9.0); NEUT # 6.5 10*3/uL (2.3-7.9); PLATELET COUNT AUTOMATED 200 10*3/uL (130-400); RED BLOOD COUNT 3.15 10*6/uL (4.50-5.90); RED CELL DISTRI WIDTH 15.5 % (0-14.5); WHITE BLOOD COUNT 9.3 10*3/uL (4.8-10.8)
[2017-09-03 06:57] LABS: BUN 6 mg/dl (7-24); CHLORIDE 104 mmol/L (98-107); CREATININE 0.45 mg/dL (0.70-1.30); POTASSIUM 3.8 mmol/L (3.5-5.1); SODIUM 143 mmol/L (136-145)
[2017-09-03 08:00] VITALS: BP 100/50
[2017-09-03 12:00] VITALS: BP 100/68
[2017-09-03 16:00] VITALS: BP 113/55
[2017-09-03 20:00] VITALS: BP 123/62
[2017-09-04] VITALS: BP 106/68
[2017-09-04 07:40] LABS: BASO % 0.3 % (0.0-1.0); EOS # 0.3 10*3/uL (0.0-0.4); HEMATOCRIT 32.5 % (42.0-52.0); HEMOGLOBIN 9.8 g/dl (14.0-18.0); LYMPH # 1.3 10*3/uL (1.3-4.4); LYMPH % 13.5 % (27.0-41.0); MEAN CELL VOLUME 101.2 fl (80.0-94.0); MEAN CORPUSCULAR HGB 30.5 pg (27.0-31.0); MEAN CORPUSCULAR HGB CONC 30.2 g/dl (33.0-37.0); MEAN PLATELET VOLUME 10.8 fl (9.6-12.3); MONO # 1.1 10*3/uL (0.1-1.0); MONO % 11.2 % (3.0-9.0); NEUT % 70.3 % (47.0-73.0); PLATELET COUNT AUTOMATED 214 10*3/uL (130-400); RED BLOOD COUNT 3.21 10*6/uL (4.50-5.90); RED CELL DISTRI WIDTH 15.4 % (0-14.5); WHITE BLOOD COUNT 9.9 10*3/uL (4.8-10.8)
[2017-09-04 08:00] VITALS: BP 120/64
[2017-09-04 08:06] LABS: INTERNATIONAL NORM RATIO 1.2 (2.0-3.5)
[2017-09-04 08:07] LABS: ALBUMIN 1.9 gm/dl (3.1-4.5); ALKALINE PHOSPHATASE 69 U/L (45-117); BUN 6 mg/dl (7-24); CHLORIDE 101 mmol/L (98-107); CREATININE 0.49 mg/dL (0.70-1.30); POTASSIUM 3.9 mmol/L (3.5-5.1); SGOT/AST 15 IU/L (3-35); SGPT/ALT 13 U/L (12-78); SODIUM 141 mmol/L (136-145); TOTAL PROTEIN 5.9 gm/dL (6.4-8.2)
[2017-09-04 12:00] VITALS: BP 110/54
[2017-09-04 16:00] VITALS: BP 101/58
[2017-09-04 20:00] VITALS: BP 100/79
[2017-09-05] VITALS: BP 109/53
[2017-09-05 07:45] LABS: BASO # 0.1 10*3/uL (0.0-0.1); BASO % 0.4 % (0.0-1.0); EOS # 0.2 10*3/uL (0.0-0.4); HEMATOCRIT 33.7 % (42.0-52.0); HEMOGLOBIN 10.3 g/dl (14.0-18.0); LYMPH # 1.2 10*3/uL (1.3-4.4); LYMPH % 10.3 % (27.0-41.0); MEAN CELL VOLUME 101.2 fl (80.0-94.0); MEAN CORPUSCULAR HGB 30.9 pg (27.0-31.0); MEAN CORPUSCULAR HGB CONC 30.6 g/dl (33.0-37.0); MEAN PLATELET VOLUME 10.3 fl (9.6-12.3); MONO % 8.7 % (3.0-9.0); NEUT # 9.1 10*3/uL (2.3-7.9); NEUT % 76.7 % (47.0-73.0); PLATELET COUNT AUTOMATED 265 10*3/uL (130-400); RED BLOOD COUNT 3.33 10*6/uL (4.50-5.90); RED CELL DISTRI WIDTH 15.1 % (0-14.5); WHITE BLOOD COUNT 11.8 10*3/uL (4.8-10.8)
[2017-09-05 08:00] VITALS: BP 104/46
[2017-09-05 08:07] LABS: BUN 7 mg/dl (7-24); CHLORIDE 101 mmol/L (98-107); PHOSPHOROUS 3.3 mg/dL (2.5-4.9); POTASSIUM 4.3 mmol/L (3.5-5.1); SODIUM 141 mmol/L (136-145)
[2017-09-05 12:00] VITALS: BP 107/67
[2017-09-05] MEDS ORDERED: NYSTOP60 GM T (14:32)
[2017-09-05] MEDS ORDERED: DOXYCYCLINE MO100 M1 PO (14:32)
[2017-09-05] MEDS ORDERED: TRAMADOL HCL50 MG PO (14:32)
[2017-09-05 16:00] VITALS: BP 95/60
== END 2017-09-05 17:45 | disposition other institution (70) | DRG 853 ==
LOC: ED 22:44 → ICCU 08-29 02:05 → EDHOLD 08-29 02:05 → 4E 08-29 02:05 → ICCU 08-29 10:58 → 4E 08-30 17:24
PROVIDERS: Emergency Medicine; Internal Medicine; Internal Medicine Hospice and Palliative Medicine; Student in an Organized Health Care Education/Training Program; Surgery
PROC: 0D1M0Z4 Bypass Descending Colon to Cutaneous, Open Approach (ICD-10-PCS; principal; 2017-08-29)
PROC: 0DJD8ZZ Inspection of Lower Intestinal Tract, Via Natural or Artificial Opening Endoscopic (ICD-10-PCS; principal; 2017-08-29)
PROC: 0DTN0ZZ Resection of Sigmoid Colon, Open Approach (ICD-10-PCS; principal; 2017-08-29)
DX: A41.9 Sepsis, unspecified organism (principal); K56.2 Volvulus; E43 Unspecified severe protein-calorie malnutrition; D68.59 Other primary thrombophilia; I48.0 Paroxysmal atrial fibrillation; E66.01 Morbid (severe) obesity due to excess calories; I50.9 Heart failure, unspecified; K92.2 Gastrointestinal hemorrhage, unspecified; N39.0 Urinary tract infection, site not specified; D53.9 Nutritional anemia, unspecified; D72.810 Lymphocytopenia; E80.6 Other disorders of bilirubin metabolism; R73.9 Hyperglycemia, unspecified; J44.9 Chronic obstructive pulmonary disease, unspecified; Z66 Do not resuscitate; Z51.5 Encounter for palliative care; M15.9 Polyosteoarthritis, unspecified; J30.2 Other seasonal allergic rhinitis; E55.9 Vitamin D deficiency, unspecified; B37.2 Candidiasis of skin and nail; F32.9 Major depressive disorder, single episode, unspecified; Z87.440 Personal history of urinary (tract) infections; Z87.891 Personal history of nicotine dependence; Z82.49 Family history of ischemic heart disease and other diseases of the circulatory system; Z80.3 Family history of malignant neoplasm of breast; Z82.3 Family history of stroke; Z79.899 Other long term (current) drug therapy; Z79.82 Long term (current) use of aspirin; Z68.34 Body mass index [BMI] 34.0-34.9, adult

== ENCOUNTER 2017-09-13 12:43 | Emergency (ER) | payer MEDICARE, OTHER, MEDICAID ==
[~2017-09-13] VITALS: Ht 180.3 cm; Wt 104.3 kg
[~2017-09-13 12:43] MED LIST changes: +BIOFREEZE118 ML T; +COLACE100 MG PO; +DOXYCYCLINE MO100 M1 PO; +DULCOLAX10 M1 R; +MILK OF MA400 MG/51 PO; +MIRALAX17 GM PO; +NYSTOP60 GM T; +PRESERVISION A1 EAC1 PO; +READY TO USE E133 ML R; +VITAMIN C500 M8 PO; +ZOLOFT50 MG PO
[2017-09-13 13:44] LABS: BASO # 0.1 10*3/uL (0.0-0.1); BASO % 1.1 % (0.0-1.0); EOS # 0.2 10*3/uL (0.0-0.4); HEMATOCRIT 36.2 % (42.0-52.0); HEMOGLOBIN 11.6 g/dl (14.0-18.0); LYMPH % 17.8 % (27.0-41.0); MEAN CELL VOLUME 95.3 fl (80.0-94.0); MEAN CORPUSCULAR HGB 30.5 pg (27.0-31.0); MEAN PLATELET VOLUME 9.5 fl (9.6-12.3); MONO # 1.2 10*3/uL (0.1-1.0); MONO % 10.5 % (3.0-9.0); NEUT # 7.4 10*3/uL (2.3-7.9); NEUT % 67.7 % (47.0-73.0); PLATELET COUNT AUTOMATED 480 10*3/uL (130-400); RED CELL DISTRI WIDTH 14.7 % (0-14.5)
[2017-09-13 13:56] LABS: ACT PARTIAL THROMBO TIME 39.1 SECONDS (20.8-31.5); INTERNATIONAL NORM RATIO 1.6 (2.0-3.5)
[2017-09-13 13:58] LABS: ALBUMIN 2.6 gm/dl (3.1-4.5); ALKALINE PHOSPHATASE 105 U/L (45-117); BUN 27 mg/dl (7-24); CHLORIDE 94 mmol/L (98-107); CREATININE 0.85 mg/dL (0.70-1.30); POTASSIUM 5.2 mmol/L (3.5-5.1); SGOT/AST 15 IU/L (3-35); SGPT/ALT 18 U/L (12-78); SODIUM 133 mmol/L (136-145)
== END 2017-09-13 16:55 | disposition home or self-care (01) ==
LOC: ED 12:43
PROVIDERS: Emergency Medicine
DX: Z48.01 Encounter for change or removal of surgical wound dressing (principal); E87.5 Hyperkalemia; I48.91 Unspecified atrial fibrillation; I50.9 Heart failure, unspecified; J44.9 Chronic obstructive pulmonary disease, unspecified; E66.01 Morbid (severe) obesity due to excess calories; M19.90 Unspecified osteoarthritis, unspecified site; Z87.891 Personal history of nicotine dependence; Z90.89 Acquired absence of other organs; Z93.3 Colostomy status; Z79.899 Other long term (current) drug therapy; Z79.82 Long term (current) use of aspirin; Z98.890 Other specified postprocedural states

== ENCOUNTER 2017-09-22 05:54 | Emergency (ER) | payer MEDICARE, OTHER, MEDICAID ==
[~2017-09-22] VITALS: Wt 106.1 kg
[2017-09-22 06:31] LABS: BASO # 0.1 10*3/uL (0.0-0.1); EOS # 0.3 10*3/uL (0.0-0.4); EOS % 2.7 % (1.0-4.0); HEMATOCRIT 36.8 % (42.0-52.0); HEMOGLOBIN 11.5 g/dl (14.0-18.0); LYMPH # 1.5 10*3/uL (1.3-4.4); LYMPH % 12.2 % (27.0-41.0); MEAN CELL VOLUME 98.4 fl (80.0-94.0); MEAN CORPUSCULAR HGB 30.7 pg (27.0-31.0); MEAN CORPUSCULAR HGB CONC 31.3 g/dl (33.0-37.0); MEAN PLATELET VOLUME 10.1 fl (9.6-12.3); MONO # 0.9 10*3/uL (0.1-1.0); MONO % 7.3 % (3.0-9.0); NEUT # 9.5 10*3/uL (2.3-7.9); NEUT % 76.1 % (47.0-73.0); PLATELET COUNT AUTOMATED 333 10*3/uL (130-400); RED BLOOD COUNT 3.74 10*6/uL (4.50-5.90); RED CELL DISTRI WIDTH 15.8 % (0-14.5); WHITE BLOOD COUNT 12.4 10*3/uL (4.8-10.8)
[2017-09-22 06:40] LABS: INTERNATIONAL NORM RATIO 1.3 (2.0-3.5)
[2017-09-22 06:48] LABS: ALBUMIN 2.6 gm/dl (3.1-4.5); ALKALINE PHOSPHATASE 112 U/L (45-117); BUN 19 mg/dl (7-24); CHLORIDE 105 mmol/L (98-107); CREATININE 0.73 mg/dL (0.70-1.30); SGOT/AST 16 IU/L (3-35); SGPT/ALT 13 U/L (12-78); SODIUM 139 mmol/L (136-145); TOTAL PROTEIN 7.3 gm/dL (6.4-8.2)
== END 2017-09-22 06:55 | disposition home or self-care (01) ==
LOC: ED 05:54
PROVIDERS: Emergency Medicine
DX: Z48.01 Encounter for change or removal of surgical wound dressing (principal); I48.91 Unspecified atrial fibrillation; I50.9 Heart failure, unspecified; E66.01 Morbid (severe) obesity due to excess calories; M19.90 Unspecified osteoarthritis, unspecified site; J44.9 Chronic obstructive pulmonary disease, unspecified; Z79.82 Long term (current) use of aspirin; Z87.891 Personal history of nicotine dependence; Z90.89 Acquired absence of other organs; Z93.3 Colostomy status; Z79.899 Other long term (current) drug therapy

== ENCOUNTER 2019-10-18 03:39 | Inpatient (IN) | payer MEDICARE, OTHER, MEDICAID ==
[2019-10-18] VITALS (9 sets, daily range): BP systolic 91–119; BP diastolic 45–76
[~2019-10-18] VITALS: Ht 180.3 cm; Wt 119.4 kg
[2019-10-18 04:09] LABS: HEMATOCRIT 38.3 % (42.0-52.0); MEAN CELL VOLUME 104.6 fl (80.0-94.0); MEAN CORPUSCULAR HGB CONC 30.5 g/dl (33.0-37.0); MEAN PLATELET VOLUME 11.2 fl (9.6-12.3); PLATELET COUNT AUTOMATED 138 10*3/uL (130-400); RED BLOOD COUNT 3.66 10*6/uL (4.50-5.90); RED CELL DISTRI WIDTH 14.5 % (0-14.5)
[2019-10-18 04:23] LABS: ALKALINE PHOSPHATASE 102 U/L (45-117); BUN 21 mg/dl (7-24); CHLORIDE 104 mmol/L (98-107); POTASSIUM 4.2 mmol/L (3.5-5.1); SGOT/AST 11 IU/L (3-35); SGPT/ALT 14 U/L (12-78); SODIUM 140 mmol/L (136-145); TOTAL PROTEIN 7.1 gm/dL (6.4-8.2)
[2019-10-18 04:24] LABS: TROPONIN I < 0.015 ng/ml (<0.045)
[2019-10-18 04:27] LABS: ACT PARTIAL THROMBO TIME 34.5 SECONDS (20.0-32.1); INTERNATIONAL NORM RATIO 1.8 (2.0-3.5)
[2019-10-18 04:37] LABS: BASOPHILS 3 % (0-1); BURR CELLS FEW; OVALOCYTES FEW; PLATELET SUFFICIENCY NORMAL (NORMAL); TOTAL CELLS COUNTED 100 #CELLS
[2019-10-18 07:12] LABS: HEMATOCRIT 37.8 % (42.0-52.0); MEAN CELL VOLUME 103.3 fl (80.0-94.0); MEAN CORPUSCULAR HGB 32.5 pg (27.0-31.0); MEAN CORPUSCULAR HGB CONC 31.5 g/dl (33.0-37.0); MEAN PLATELET VOLUME 11.5 fl (9.6-12.3); PLATELET COUNT AUTOMATED 136 10*3/uL (130-400); RED BLOOD COUNT 3.66 10*6/uL (4.50-5.90); RED CELL DISTRI WIDTH 14.5 % (0-14.5); WHITE BLOOD COUNT 8.1 10*3/uL (4.8-10.8)
[2019-10-18 07:26] LABS: ALKALINE PHOSPHATASE 97 U/L (45-117); BUN 20 mg/dl (7-24); CHLORIDE 104 mmol/L (98-107); CREATININE 0.67 mg/dL (0.70-1.30); FREE T4 0.96 ng/dl (0.76-1.46); POTASSIUM 3.9 mmol/L (3.5-5.1); SGOT/AST 14 IU/L (3-35); SGPT/ALT 15 U/L (12-78); SODIUM 141 mmol/L (136-145); TOTAL PROTEIN 7.2 gm/dL (6.4-8.2)
[2019-10-18 08:14] LABS: PLATELET SUFFICIENCY NORMAL (NORMAL); TOTAL CELLS COUNTED 100 #CELLS
[2019-10-18] MEDS ORDERED: FUROSEMIDE40 MG PO (14:13)
[2019-10-18] MEDS ORDERED: PRESERVISION A1 EAC1 PO (14:15)
[2019-10-18] MEDS ORDERED: PROSOURCE275 GM PO (14:17)
[2019-10-18] MEDS ORDERED: FLONASE ALLERG9.9 ML NAS (14:20)
[2019-10-19] VITALS: BP 105/50
[2019-10-19 06:43] LABS: HEMATOCRIT 36.1 % (42.0-52.0); MEAN CELL VOLUME 102.3 fl (80.0-94.0); MEAN CORPUSCULAR HGB 32.3 pg (27.0-31.0); MEAN CORPUSCULAR HGB CONC 31.6 g/dl (33.0-37.0); MEAN PLATELET VOLUME 11.1 fl (9.6-12.3); PLATELET COUNT AUTOMATED 127 10*3/uL (130-400); RED BLOOD COUNT 3.53 10*6/uL (4.50-5.90); RED CELL DISTRI WIDTH 14.6 % (0-14.5); WHITE BLOOD COUNT 7.5 10*3/uL (4.8-10.8)
[2019-10-19 07:08] LABS: BUN 17 mg/dl (7-24); CHLORIDE 100 mmol/L (98-107); CHOLESTEROL 89 mg/dL (<200); CREATININE 0.66 mg/dL (0.70-1.30); POTASSIUM 3.5 mmol/L (3.5-5.1); SODIUM 138 mmol/L (136-145); TRIGLYCERIDES 47 mg/dl (<150); VLDL CHOLESTEROL 9 mg/dL (6-40)
[2019-10-19 07:10] LABS: HDL CHOLESTEROL 41 mg/dl (40-60); LDL CHOLESTEROL 39 mg/dL (9-159)
[2019-10-19 07:48] LABS: PLATELET SUFFICIENCY LOW (NORMAL); TOTAL CELLS COUNTED 100 #CELLS; TOXIC GRANULATION SLIGHT; VACUOLATION OF NEUTROPHILS SLIGHT
[2019-10-19 08:00] VITALS: BP 110/60
[2019-10-19 12:00] VITALS: BP 103/57
[2019-10-19 14:00] VITALS: BP 103/57
[2019-10-19 16:00] VITALS: BP 105/51
[2019-10-19 20:00] VITALS: BP 116/55
[2019-10-20] VITALS: BP 116/65
[2019-10-20 08:00] VITALS: BP 114/66
[2019-10-20 12:00] VITALS: BP 110/60
[2019-10-20 13:23] LABS: BILIRUBIN NEGATIVE (NEGATIVE); BLOOD 1+ (NEGATIVE); CLARITY CLEAR (CLEAR); COLOR YELLOW (YELLOW); GLUCOSE NEGATIVE (NEGATIVE); KETONE TRACE (NEGATIVE); LEUKO ESTERASE TRACE (NEGATIVE); NITRITE NEGATIVE (NEGATIVE); SPECIFIC GRAVITY 1.015 (1.005-1.030); UROBILINOGEN 0.2 E.U./dl (0.2-1.0)
[2019-10-20 13:27] LABS: BACTERIA 1+; HYALINE CAST 41-50
[2019-10-20 16:00] VITALS: BP 121/62
[2019-10-20 20:00] VITALS: BP 112/53
[2019-10-21] VITALS: BP 118/53
[2019-10-21 08:00] VITALS: BP 122/62
[2019-10-21 12:00] VITALS: BP 128/66
[2019-10-21 16:00] VITALS: BP 121/51
[2019-10-21 20:00] VITALS: BP 115/47
[2019-10-22] VITALS: BP 109/62
[2019-10-22 08:00] VITALS: BP 112/54
[2019-10-22] MEDS ORDERED: CEFUROXIME AXE500 MG PO (11:37)
[2019-10-22] MEDS ORDERED: AVPAK AZITHROM250 MG PO (11:39)
[2019-10-22] MEDS ORDERED: LASIX40 MG PO (11:39)
[2019-10-22 12:00] VITALS: BP 109/57
== END 2019-10-22 15:07 | disposition other institution (70) | DRG 291 ==
LOC: ED 03:39 → 5E 05:34 → EDHOLD 05:34 → 5E 08:26
PROVIDERS: Emergency Medicine Emergency Medical Services; Internal Medicine; ADMIT Emergency Medicine
DX: I50.33 Acute on chronic diastolic (congestive) heart failure (principal); J18.9 Pneumonia, unspecified organism; E44.1 Mild protein-calorie malnutrition; D68.59 Other primary thrombophilia; I48.20 Chronic atrial fibrillation, unspecified; J44.0 Chronic obstructive pulmonary disease with (acute) lower respiratory infection; R78.81 Bacteremia; Z68.37 Body mass index [BMI] 37.0-37.9, adult; E66.01 Morbid (severe) obesity due to excess calories; F32.9 Major depressive disorder, single episode, unspecified; D53.9 Nutritional anemia, unspecified; M19.90 Unspecified osteoarthritis, unspecified site; J30.2 Other seasonal allergic rhinitis; I71.2 Thoracic aortic aneurysm, without rupture; I08.1 Rheumatic disorders of both mitral and tricuspid valves; E80.6 Other disorders of bilirubin metabolism; E83.41 Hypermagnesemia; R00.1 Bradycardia, unspecified; D69.6 Thrombocytopenia, unspecified; R73.9 Hyperglycemia, unspecified; Z20.828 Contact with and (suspected) exposure to other viral communicable diseases; Z66 Do not resuscitate; Z51.5 Encounter for palliative care; B96.20 Unspecified Escherichia coli [E. coli] as the cause of diseases classified elsewhere; R31.21 Asymptomatic microscopic hematuria; R82.71 Bacteriuria; F03.90 Unspecified dementia, unspecified severity, without behavioral disturbance, psychotic disturbance, mood disturbance, and anxiety; Z87.440 Personal history of urinary (tract) infections; Z90.49 Acquired absence of other specified parts of digestive tract; Z98.52 Vasectomy status; Z87.891 Personal history of nicotine dependence; Z82.3 Family history of stroke; Z80.3 Family history of malignant neoplasm of breast; Z79.82 Long term (current) use of aspirin; Z79.899 Other long term (current) drug therapy; Z79.01 Long term (current) use of anticoagulants